=== PATIENT | female | born 1950 | race Caucasian/White ===

== ENCOUNTER 2022-05-27 11:36 | Outpatient (CLI) | payer OTHER, SELFPAY ==
[2022-05-27 16:28] LABS: Free T4 Free Thyroxine* 0.94 ng/dL (0.70-1.85)
== END 2022-05-27 11:37 | disposition home or self-care (01) ==
PROVIDERS: PCP Family Medicine; Visit Provider Family Medicine
DX: E05.90 Thyrotoxicosis, unspecified without thyrotoxic crisis or storm (principal); I10 Essential (primary) hypertension; R53.81 Other malaise; R53.83 Other fatigue
CPT/HCPCS: 84439; 84443

== ENCOUNTER 2023-02-20 09:20 | Outpatient (CLI) | payer OTHER, SELFPAY | END 2023-02-20 09:21 | disposition home or self-care (01) | LOC: NFLDREF 02-21 05:44 | PROVIDERS: PCP Family Medicine; Referring Provider Family Medicine; Visit Provider Family Medicine | DX: Z00.00 Encounter for general adult medical examination without abnormal findings (principal); I10 Essential (primary) hypertension; E78.00 Pure hypercholesterolemia, unspecified; E05.90 Thyrotoxicosis, unspecified without thyrotoxic crisis or storm; R53.83 Other fatigue | CPT/HCPCS: 80048; 80061; 82043; 82570 ==

== ENCOUNTER 2023-05-17 12:35 | Outpatient (CLI) | payer OTHER, SELFPAY ==
--- NOTE | 2023-05-17 13:00 | CRLHL7_ITS ---
For Patients: As a result of the Century Cures Act, medical imaging exams and procedure reports are released immediately into your electronic medical record. You may view this report before your referring provider. If you have questions, please contact your health care provider. BILATERAL SCREENING MAMMOGRAM WITH COMPUTER-AIDED DETECTION TECHNIQUE: CC and MLO views were obtained. These mammographic images have been obtained using full-field digital technique. These mammographic images were interpreted with the benefit of computer-aided detection. COMPARISON FILM: 12/22/21, 12/16/20, 09/02/19. FINDINGS: There are scattered areas of fibroglandular density IMPRESSION: There is no radiographic evidence for malignancy. ASSESSMENT: BI-RADS Category 1: Negative RECOMMENDATION: Routine screening mammogram in 1 year. A lay language report of this examination will be provided to the patient. Wan Mendez M.D. Diagnostic Radiologist [email or web address] Transcribed: 1:52 [email or web address]/Dictated by: Wan Mendez MD @ 05/18/2023 8:51:00 AM (Electronically Signed)
--- NOTE | 2023-05-17 14:00 | CRLHL7_ITS ---
For Patients: As a result of the Cures Act, medical imaging exams and procedure reports are released immediately into your electronic medical record. You may view this report before your referring provider. If you have questions, please contact your health care provider. DXA BONE MINERAL DENSITY STUDY, 05/17/2023 Reason for exam: Osteopenia. Current height (inches): 63.0 Weight (lbs.): 136.0 Menopause age: 55 Ethnicity: White 1. Have you had a previous hip or vertebral fracture? No. 2. Have you had any fractures during your adult life which did not result from significant trauma (e.g., auto accident)? No. 3. Did either of your parents have a hip fracture? No. 4. Do you smoke? No. 5. Have you ever taken Glucocorticoids? No. 6. Do you have rheumatoid arthritis? No. 7. Do you have secondary osteoporosis? No. 8. Do you drink 3 or more alcoholic drinks per day? No. 9. Are you being treated for osteoporosis? No. 10. Have you ever taken any of the following medications: Actonel, Evista, Fosamax, Miacalcin, Reclast, Boniva, Forteo, HRT (i.e., estrogen/hormone therapy), Protelos, Prolia, Vitamin D, Calcium, other ??? please specify. ANSWER: Yes; Fosamax, vitamin D, calcium. 11. Do you have any of the following medical conditions: Anorexia or bulimia, asthma or emphysema, end stage renal disease, hyperparathyroidism, any seizure disorders, cancer, inflammatory bowel diseases, hysterectomy, other ??? please specify. ANSWER: No. 12. What was your maximum height (inches)? 63. 13. Do you perform weightbearing exercise regularly? No. 14. Do you regularly consume dairy products? Yes. 15. Do you drink caffeinated beverages? Yes. 16. At what age did your period start? 16. 17. Are you premenopausal? No. 18. How many full-term pregnancies have you had? 3. 19. Have you ever missed your period for more than 6 months in a row (not including or menopause)? No. TECHNIQUE: Bone mineral density study was performed using the [employer]. FINDINGS: The results of the study expressed as bone mineral density (BMD) are as follows: Lumbar Spine L1 to L2, L4: BMD: 0.853 g/cm2. T-score: -1.6. Z-score: 0.6. Neck Left: BMD: 0.617 g/cm2. T-score: -2.1. Z-score: -0.1. Right: BMD: 0.603 g/cm2. T-score: -2.2. Z-score: -0.3. Total Left: BMD: 0.821 g/cm2. T-score: -1.0. Z-score: 0.7. Right: BMD: 0.827 g/cm2. T-score: -0.9. Z-score: 0.7. IMPRESSION: Osteopenia. COMPARISON: Compared with scan of 12/16/2020, the bone mineral density has decreased by 0.6% at the spine and decreased by 1.1% at the hip. Compared with scan of 01/23/2017, the bone mineral density has increased by 1.6% at the spine and increased by 7.4% at the hip. *Comparison exams done prior to 03/2020 were performed on different unit, [place]. FRAX 10-year Fracture Risk Major Osteoporotic Fracture: 13% Hip Fracture: 3.2% Reported Risk Factors: [place] () Neck BMD = 0.603, BMI = 24.1 WAN BROWNE M.D. Diagnostic Radiologist [email or web address] Transcribed: 1:[address]/Dictated by: Wan Browne MD @ 05/18/2023 9:28:00 AM (Electronically Signed)
== END 2023-05-17 12:36 | disposition home or self-care (01) ==
LOC: MAMMO 12:36
PROVIDERS: PCP Family Medicine; Visit Provider Family Medicine
DX: Z12.31 Encounter for screening mammogram for malignant neoplasm of breast (principal); M85.80 Other specified disorders of bone density and structure, unspecified site; M85.89 Other specified disorders of bone density and structure, multiple sites
CPT/HCPCS: 77063; 77067; 77080

== ENCOUNTER 2024-06-11 08:04 | Outpatient (CLI) | payer OTHER, SELFPAY | END 2024-06-11 08:05 | disposition home or self-care (01) | LOC: NFLDREF 17:11 | PROVIDERS: PCP Family Medicine; Referring Provider Family Medicine; Visit Provider Family Medicine | DX: Z00.00 Encounter for general adult medical examination without abnormal findings (principal); I10 Essential (primary) hypertension; E78.00 Pure hypercholesterolemia, unspecified; E05.90 Thyrotoxicosis, unspecified without thyrotoxic crisis or storm; R53.83 Other fatigue; Z13.1 Encounter for screening for diabetes mellitus | CPT/HCPCS: 80053; 80061; 84439; 84443 ==

== ENCOUNTER 2024-06-18 08:21 | Outpatient (CLI) | payer OTHER, SELFPAY ==
--- NOTE | 2024-06-18 08:45 | CRLHL7_ITS ---
For Patients: As a result of the Cures Act, medical imaging exams and procedure reports are released immediately into your electronic medical record. You may view this report before your referring provider. If you have questions, please contact your health care provider. BILATERAL SCREENING MAMMOGRAM WITH COMPUTER-AIDED DETECTION AND TOMOSYNTHESIS TECHNIQUE: CC and MLO views were obtained. These mammographic images have been obtained using full-field digital technique. These mammographic images were interpreted with the benefit of computer-aided detection. Breast Tomosynthesis was used in this interpretation. COMPARISON FILM: 05/17/23, 12/22/21, 12/16/20. FINDINGS: There are scattered areas of fibroglandular density IMPRESSION: There is no radiographic evidence for malignancy. ASSESSMENT: BI-RADS Category 1: Negative RECOMMENDATION: Routine screening mammogram in 1 year. A lay language report of this examination will be provided to the patient. Wan Mendez M.D. Diagnostic Radiologist [email or web address] Transcribed: 3:13 [email or web address]/Dictated by: Wan Mendez MD @ 06/19/2024 11:50:00 AM (Electronically Signed)
== END 2024-06-18 08:22 | disposition home or self-care (01) ==
PROVIDERS: PCP Family Medicine; Visit Provider Family Medicine
DX: Z12.31 Encounter for screening mammogram for malignant neoplasm of breast (principal)
CPT/HCPCS: 77063; 77067

== ENCOUNTER 2025-02-13 08:30 | Outpatient (CLI) | payer OTHER, SELFPAY | END 2025-02-13 08:31 | disposition home or self-care (01) | LOC: NFLDREF 02-16 08:14 | PROVIDERS: PCP Family Medicine; Referring Provider Family Medicine; Visit Provider Family Medicine | DX: E05.90 Thyrotoxicosis, unspecified without thyrotoxic crisis or storm (principal) | CPT/HCPCS: 84443 ==

== ENCOUNTER 2025-07-25 08:27 | Outpatient (CLI) | payer OTHER, SELFPAY | END 2025-07-25 08:28 | disposition home or self-care (01) | LOC: NFLDREF 07-28 12:04 | PROVIDERS: PCP Family Medicine; Referring Provider Family Medicine; Visit Provider Family Medicine | DX: I10 Essential (primary) hypertension (principal); E78.00 Pure hypercholesterolemia, unspecified; E05.90 Thyrotoxicosis, unspecified without thyrotoxic crisis or storm | CPT/HCPCS: 80053; 80061; G0103 ==

== ENCOUNTER 2025-08-04 14:02 | Outpatient (CLI) | payer OTHER, SELFPAY | END 2025-08-04 14:03 | disposition home or self-care (01) | LOC: LKVREF 14:02 | PROVIDERS: PCP Family Medicine; Visit Provider Family Medicine | DX: E05.90 Thyrotoxicosis, unspecified without thyrotoxic crisis or storm (principal); E78.00 Pure hypercholesterolemia, unspecified; R53.83 Other fatigue | CPT/HCPCS: 84443 ==

== ENCOUNTER 2025-08-05 14:53 | Outpatient (CLI) | payer OTHER, SELFPAY ==
--- NOTE | 2025-08-05 16:40 | CRLHL7_ITS ---
For Patients: As a result of the Century Cures Act, medical imaging exams and procedure reports are released immediately into your electronic medical record. You may view this report before your referring provider. If you have questions, please contact your health care provider. INDICATION: BILATERAL SCREENING MAMMOGRAM, ASYMPTOMATIC 74 Y/O FEMALE COMPARISON: 06/15/2024, 05/17/2023, 01/11/2022 TECHNIQUE: Digital mammogram in CC and MLO projections including computer-aided detection (CAD) and tomosynthesis. BREAST COMPOSITION: There are scattered areas of fibroglandular density. FINDINGS: No suspicious findings. ASSESSMENT: BI-RADS 1 Negative RECOMMENDATION: Annual screening mammogram. A lay language report of this examination will be provided to the patient. Dictated by: Jennifer Fernandez MD @ 08/06/2025 07:19:13 (Electronically Signed)
== END 2025-08-05 14:54 | disposition home or self-care (01) ==
LOC: MAMMO 14:53
PROVIDERS: PCP Family Medicine; Visit Provider Family Medicine
DX: Z12.31 Encounter for screening mammogram for malignant neoplasm of breast (principal)
CPT/HCPCS: 77063; 77067

== ENCOUNTER 2025-09-03 13:21 | Outpatient (CLI) | payer OTHER, SELFPAY ==
--- NOTE | 2025-09-03 14:30 | CRLHL7_ITS ---
For Patients: As a result of the Century Cures Act, medical imaging exams and procedure reports are released immediately into your electronic medical record. You may view this report before your referring provider. If you have questions, please contact your health care provider. XR DXA Bone Mineral Density (BMD) Reason for exam: Osteopenia. Current height (inches): 63.0 Weight (lbs.): 145.0 Menopause age: 55 Ethnicity: White 1. Have you had a previous hip or vertebral fracture? No. 2. Have you had any fractures during your adult life which did not result from significant trauma (e.g., auto accident)? No. 3. Did either of your parents have a hip fracture? No. 4. Do you smoke? No. 5. Have you ever taken Glucocorticoids? No. 6. Do you have rheumatoid arthritis? Yes. 7. Do you have secondary osteoporosis? No. 8. Do you drink 3 or more alcoholic drinks per day? No. 9. Are you being treated for osteoporosis? No. 10. Have you ever taken any of the following medications: Actonel, Evista, Fosamax, Miacalcin, Reclast, Boniva, Forteo, HRT (i.e., estrogen/hormone therapy), Protelos, Prolia, Vitamin D, Calcium, other ??? please specify. ANSWER: Yes; Fosamax, vitamin D and calcium. 11. Do you have any of the following medical conditions: Anorexia or bulimia, asthma or emphysema, end stage renal disease, hyperparathyroidism, any seizure disorders, cancer, inflammatory bowel diseases, hysterectomy, other ??? please specify. ANSWER: No. 12. What was your maximum height (inches)? 63. 13. Do you perform weightbearing exercise regularly? No. 14. Do you regularly consume dairy products? Yes. 15. Do you drink caffeinated beverages? Yes. 16. At what age did your period start? 16. 17. Are you premenopausal? No. 18. How many full-term pregnancies have you had? 2. 19. Have you ever missed your period for more than 6 months in a row (not including or menopause)? No. TECHNIQUE: Bone mineral density study was performed using the [employer]. FINDINGS: The results of the study expressed as bone mineral density (BMD) are as follows: Lumbar Spine L1 to L2, L4: BMD: 0.870 g/cm2. T-score: -1.5. Z-score: 0.9. Neck Left: BMD: 0.603 g/cm2. T-score: -2.2. Z-score: -0.1. Right: BMD: 0.593 g/cm2. T-score: -2.3. Z-score: -0.2. Total Left: BMD: 0.827 g/cm2. T-score: -0.9. Z-score: 0.8. Right: BMD: 0.852 g/cm2. T-score: -0.7. Z-score: 1.0. IMPRESSION: Osteopenia. COMPARISON: Compared with scan of 05/17/2023, the bone mineral density has increased by 2.0% at the spine and increased by 1.9% at the hip. Compared with scan of 12/16/2020, the bone mineral density has decreased by 0.6% at the spine and decreased by 1.1% at the hip. *Comparison exams done prior to 03/2020 were performed on different unit, [place]. FRAX 10-year Fracture Risk Major Osteoporotic Fracture: 19% Hip Fracture: 5.9% Reported Risk Factors: [place] () Neck BMD = 0.593, BMI = 25.7, rheumatoid arthritis. WAN BROWNE M.D. Diagnostic Radiologist [email or web address] Transcribed: 2:[address]/Dictated by: Wan Browne MD @ 09/04/2025 8:09:00 AM (Electronically Signed)
== END 2025-09-03 13:22 | disposition home or self-care (01) ==
LOC: RAD 13:22
PROVIDERS: PCP Family Medicine; Visit Provider Family Medicine
DX: M85.80 Other specified disorders of bone density and structure, unspecified site (principal); M81.0 Age-related osteoporosis without current pathological fracture
CPT/HCPCS: 77080